=== PATIENT | male | born 1995 | race Caucasian/White ===

== ENCOUNTER 2022-01-14 07:20 | Day surgery (SDC) | payer MEDICARE, OTHER ==
[~2022-01-14] VITALS: Ht 177.8 cm; Wt 67.3 kg
[~2022-01-14 07:20] MED LIST: B12 ACTIVE1000 MCG PO; CLARITIN10 M2 PO; COD LIVER OIL1 EAC2 PO; DIALYVITE 3,001 EACH PO; DIPHENHYDRAMINE25 M1 PO; MELATONIN5 M5 PO; MULTI VITAMIN1 EACH PO; SEROQUEL50 MG PO
--- NOTE | 2022-01-14 10:10 | NUR ---
01/14/22 1010 Laisha Chew 1008 PATIENT ARRIVES TO PACU UNRESPONSIVE TO PAIN. RESP EVEN AND UNLABORED, MASK AT 6 LITERS.
--- NOTE | 2022-01-14 11:59 | NUR ---
LE 1035: PATIENT IS DROWSY, LAYING ON LEFT SIDE, INTERACTING WITH HIS SISTER. PATIENT'S SISTER DENIES NEEDS AT THIS TIME.
--- NOTE | 2022-01-14 12:22 | NUR ---
LE 1210: URINAL EMPTIED FOR 300 ML DARK, YELLOW URINE. PATIENT'S SISTER ASSISTS PATIENT GETTING DRESSED. PATIENT TRANSFERS SELF TO WHEELCHAIR AND THEN TO PERSONAL VEHICLE AND HE TOLERATES THAT WELL. HE IS DISCHARGED TALIA WITH HIS SISTER.
== END 2022-01-14 12:15 | disposition home or self-care (01) ==
LOC: OPS 07:20 → DS 07:20 → OPS 09:00 → DS 09:00 → OPS 12:15
PROVIDERS: ATTEND Dentist General Practice
PROC: 0CRWXJ2 Replacement of Upper Tooth, All, with Synthetic Substitute, External Approach (ICD-10-PCS; 2022-01-14)
PROC: 0CRXXJ1 Replacement of Lower Tooth, Multiple, with Synthetic Substitute, External Approach (ICD-10-PCS; principal; 2022-01-14 09:00)
DX: K08.89 Other specified disorders of teeth and supporting structures (principal); G80.9 Cerebral palsy, unspecified; K02.9 Dental caries, unspecified
CPT/HCPCS: J0330; J1100; J1885; J2250; J2405; J2704; J2765; J3010; J7121

== ENCOUNTER 2025-02-17 08:49 | Emergency (ER) | payer MEDICARE, OTHER ==
[~2025-02-17] VITALS: Ht 177.8 cm; Wt 81.0 kg
[2025-02-17] MEDS ORDERED: CEFTRIAXONE SODIUM 2 GM in SODIUM CHLORIDE 0.9% 100 ML IV ONE (09:30)
[2025-02-17 09:58] LABS: BASOPHILS 0 % (0.2-1.2); EOSINOPHILS 0.3 % (0.8-7.0); HEMATOCRIT 45.7 % (40.1-51.0); HEMOGLOBIN 15.9 g/dL (13.7-17.5); LYMPHOCYTES 5.2 % (21.8-53.1); MCH 31.4 PG (25.7-32.2); MCHC 34.8 g/dL (32.3-36.5); MCV 90.1 fL (79.0-92.2); MONOCYTES 5.4 % (5.3-12.2); NEUTROPHILS 88.8 % (34.0-67.9); PLATELET COUNT 160 K/uL (163-337); RBC 5.07 M/uL (4.63-6.08)
[2025-02-17 10:10] LABS: PARTIAL THROMBOPLASTIN TIME 29.6 Sec (22.9-41.3)
[2025-02-17 10:11] LABS: INR 1.12 (0.80-1.30); PROTIME 13.9 Sec (11.2-14.2)
[2025-02-17 10:14] LABS: ALBUMIN 3.3 g/dL (3.4-5.0); ALBUMIN/GLOBULIN RATIO 0.97 (1.1-2.4); ANION GAP 12.9 (7-21); BILIRUBIN, TOTAL 0.5 mg/dL (0.2-1.0); BUN/CREATININE RATIO 25.97 (6.0-28.6); CREATININE, SERUM 0.77 mg/dL (0.70-1.30); POTASSIUM 3.9 mmol/L (3.5-5.1); PROTEIN, TOTAL 6.7 g/dL (6.4-8.2)
[2025-02-17 10:19] LABS: LACTIC ACID, BLOOD 1.5 mmol/L (0.4-2.0)
[2025-02-17] MEDS ORDERED: SODIUM CHLORIDE 0.9% 1,000 ML IV PRN (11:00)
[2025-02-17 12:26] LABS: BILIRUBIN, URINE POSITIVE (negative); BLOOD/HGB, URINE NEGATIVE (Negative); KETONE, URINE NEGATIVE (Negative); LEUK ESTERASE, URINE NEGATIVE (negative); NITRITE, URINE NEGATIVE (negative)
--- NOTE | 2025-02-17 13:07 | EKG ---
[facility] [address] [facility] [place], [place] [address] Signed Sinus tachycardia Otherwise normal ECG No previous ECGs available Confirmed by Ricci Wesley DO ([id number]) on 02/17/2025 1:07:03 PM Electronically Signed By: RICCI WESLEY DO 02/17/25 1307 PATIENT NAME: DIANAJEANNA Electrocardiogram DATE OF : [birth year] PHYSICIAN: RICCI WESLEY DO REPORT #: [id number] REPORT IS CONFIDENTIAL AND NOT TO BE RELEASED WITHOUT AUTHORIZATION
[2025-02-17 14:00] VITALS: BP 124/89
== END 2025-02-17 14:00 | disposition home or self-care (01) ==
LOC: ED 08:49
PROVIDERS: Emergency Medicine
DX: M54.2 Cervicalgia (principal); R00.0 Tachycardia, unspecified; R07.9 Chest pain, unspecified; R47.89 Other speech disturbances; Z79.899 Other long term (current) drug therapy
CPT/HCPCS: 36415; 71045; 80053; 81003; 83605; 85025; 85610; 85730; 87040; 93005; 93010; 99285-25; J7030

== ENCOUNTER 2025-05-10 07:57 | Emergency (ER) | payer MEDICARE, OTHER ==
[~2025-05-10] VITALS: Ht 177.8 cm; Wt 81.6 kg
[2025-05-10] MEDS ORDERED: QUETIAPINE FUMA50 MG PO (08:10)
[2025-05-10] MEDS ORDERED: MAGNESIUM200 MG PO (08:11)
[2025-05-10] MEDS ORDERED: POLYMYXIN B-TMP10 ML OPTH (08:57)
[2025-05-10 09:08] VITALS: BP 140/100
== END 2025-05-10 09:08 | disposition home or self-care (01) ==
LOC: ED 07:57
DX: H00.11 Chalazion right upper eyelid (principal); Z79.899 Other long term (current) drug therapy
CPT/HCPCS: 99283